=== PATIENT | female | born 1970 | race Caucasian/White ===

== ENCOUNTER 2017-04-04 20:18 | Inpatient (IN) ==
[2017-04-04] MEDS ORDERED: NS 2,000 ML ONE (20:34)
[2017-04-04] MEDS ORDERED: NS 1,000 ML IV ONE ×2 (20:43)
[2017-04-04 20:52] LABS: MANUAL DIFF NEEDED? NO
[2017-04-04 20:55] LABS: BASO% 0.4 % (0.0-0.8); EOS# 0.06 X1000 (0.0-0.7); EOS% 0.8 % (0.0-10.0); HEMATOCRIT 37.2 % (37.0-47.0); HEMOGLOBIN 12.5 g/dL (12.0-16.0); LYMPH# 2.91 X1000 (1.2-3.4); LYMPH% 36.6 % (20.5-51.1); MCH 30.8 PG (27-31); MCHC 33.6 g/dL (33-37); MCV 91.6 FL (81-99); MONO# 0.57 X1000 (0.11-0.59); MONO% 7.2 % (1.7-9.3); MPV 10.7 FL (7.4-10.4); PLT 235 X1000 (130-400); RBC 4.06 XMIL (4.2-5.4)
[2017-04-04 21:11] LABS: MAGNESIUM 2.2 mg/dL (1.5-2.7)
[2017-04-04] MEDS ORDERED: LEVOPHED 8 MG in D5 1/2 NS 250 ML IV SCH (21:15)
[2017-04-04 21:17] LABS: ALBUMIN 3.7 g/dL (3.5-5.0); CALCIUM 10.5 mg/dL (8.8-10.2); POTASSIUM 3.6 mmol/L (3.5-5.1); TOTAL BILIRUBIN 0.24 mg/dL (0.20-1.00); TOTAL PROTEIN 6.4 g/dL (6.3-8.3)
--- NOTE | 2017-04-04 21:21 | Diag Imaging Result Doc PS360 ---
EXAM: CT HEAD W/O CONTRAST HISTORY: ams TECHNIQUE: CT brain without contrast. Dose reduction protocol. COMPARISON: 05/04/2015. FINDINGS: No parenchymal hemorrhage. No epidural or subdural hematoma. No subarachnoid hemorrhage. No mass identified on this noncontrasted exam. No hydrocephalus. No sinus opacification. IMPRESSION: No hemorrhage. Negative brain CT without contrast. Electronically signed by Sarkis Curry 04/04/2017 9:18 PM
[2017-04-04] MEDS ORDERED: SOLU-MEDROL IV ONE (21:23)
--- NOTE | 2017-04-04 21:28 | Diag Imaging Result Doc PS360 ---
EXAM: CHEST-1 VIEW HISTORY: hypotension TECHNIQUE: COMPARISON: 10/06/2016 FINDINGS: The exam is taken in a lordotic projection. Poor inspiratory effort. Heart is not enlarged. Increased interstitial markings more pronounced on the right. No pleural effusions. IMPRESSION: Mild vascular distention. Follow-up PA and lateral recommended.. Electronically signed by Sarkis Curry 04/04/2017 9:25 PM
[2017-04-04] MEDS: LEVOPHED 8 MG in D5 1/2 NS 250 ML IV SCH ×3 (21:31→22:24)
[2017-04-04 22:12] LABS: URINE MICRO REVIEW NEEDED? NO; URINE SOURCE CATH
[2017-04-04 22:19] LABS: BILIRUBIN URINE NEGATIVE (NEGATIVE); BLOOD URINE SMALL (NEGATIVE); COLOR ORANGE; GLUCOSE URINE 500 mg/dL (NEGATIVE); LEUKOCYTES URINE LARGE (NEGATIVE); NITRITE URINE NEGATIVE (NEGATIVE); PH URINE 5.5; PROTEIN URINE 50 mg/dL (NEGATIVE); SP GRAVITY URINE 1.013; TURBIDITY URINE TURBID (CLEAR); UR EPITHELIAL CELLS <10 /HPF (<10); URINE BACTERIA 4+ /HPF; URINE CULTURE NEEDED? YES; URINE RBC <10 /HPF (<10); URINE WBC TNTC /HPF (<10); UROBILINOGEN URINE NORMAL (NORMAL)
[2017-04-04 22:36] LABS: UR AMPHETAMINES QUAL NONE DETECTED (NONE DETECT); UR BARBITUATES QUAL NONE DETECTED (NONE DETECT); UR BENZODIAZEPIN QUAL PRESUMPTIVE POSITIVE (NONE DETECT); UR CANNABINOIDS QUAL NONE DETECTED (NONE DETECT); UR COCAINE QUAL NONE DETECTED (NONE DETECT); UR METHADONE QUAL NONE DETECTED (NONE DETECT); UR OPIATES QUAL NONE DETECTED (NONE DETECT); UR OXYCODONE QUAL PRESUMPTIVE POSITIVE (NONE DETECT); UR PCP QUAL NONE DETECTED (NONE DETECT)
[2017-04-04] MEDS ORDERED: ROCEPHIN 1 GM/NS 1 GM/50 ML IVPB IV ONE (23:14)
[2017-04-04] MEDS ORDERED: NARCAN IV ONE ×2 (23:27→23:40)
--- NOTE | 2017-04-04 23:27 | PROVIDER DOCUMENTATION ---
This chart was entered by Мария Webber Scribe, acting as scribe for Idris Villa MD. HPI-General Adult - General Chief Complaint: High Blood Sugar Stated Complaint: HIGH BLOOD SUGAR Time Seen by Provider: 04/04/17 20:42 Source: patient, family Allergies/Adverse Reactions: Patient Allergies Allergy/AdvReac Type Severity Reaction Status Date / Time ondansetron HCl * AdvReac HEADACHE Verified 04/04/17 21:37 [From Zofran] Home Medications: Home Medication List Medication Instructions Recorded Confirmed Last Taken Type Promethazine [Phenergan] 25 mg PO Q6H PRN PRN #25 tablet 12/03/12 10/06/1610/05 Rx Alprazolam [Xanax] 1 mg PO TID 12/22/13 10/06/16 10/05/16 History Fluoxetine [Prozac] 20 mg PO DAILY 12/22/13 10/06/16 10/05/16 History Insulin Regular, Human [Novolin R] 10 units SQ BID 12/22/13 10/06/16 10/05/16 History PRAVAstatin [Pravachol] 40 mg PO HS 12/22/13 10/06/16 10/05/16 History Amphet Asp/Amphet/D-Amphet 30 mg PO BID 05/13/15 10/06/16 10/05/16 History [Adderall 10 mg Tablet] Gabapentin E.r. [Gralise] 600 mg PO TID 05/13/15 10/06/16 10/05/16 History Morphine Sulfate [Morphine Sulfate 30 mg PO HS 05/13/15 10/06/16 10/05/16 History ER] Oxycodone HCl/Acetaminophen 1 each PO 4XDAY 05/13/15 10/06/16 10/05/16 History [Percocet 10-325 mg Tablet] Levothyroxine [Synthroid] 75 microgm PO DAILY 03/17/16 10/06/16 10/05/16 History Sulfamethoxazole/Trimethoprim 1 each PO BID #14 tablet 10/04/16 10/06/16 Rx [Bactrim Ds Tablet] Baclofen 10 mg PO HS 10/06/16 10/06/16 10/05/16 History Canagliflozin [Invokana] 300 mg PO DAILY 10/06/16 10/06/16 10/05/16 History Fluconazole 150 mg PO DAILY 10/06/16 10/06/16 10/05/16 History Furosemide 40 mg PO DAILY 10/06/16 10/06/16 10/05/16 History Interferon Beta-1B [Betaseron] 1 mg SQ EVERY OTHER DAY 10/06/16 10/06/16 History Losartan Potassium 50 mg PO DAILY 10/06/16 10/06/16 10/05/16 History Morphine Sulfate [Laura] 60 mg PO BID 10/06/16 10/06/16 10/05/16 History Potassium Chloride [Klor-Con 10] 10 meq PO DAILY 10/06/16 10/06/16 10/05/16 History Ranitidine [Zantac] 150 mg PO BID 10/06/16 10/06/16 10/05/16 History Ropinirole HCl 0.25 mg PO HS 10/06/16 10/06/16 10/05/16 History Sitagliptin Phosphate [Januvia] 100 mg PO DAILY 10/06/16 10/06/16 10/05/16 History - History of Present Illness -Gen Adult Nature of Presenting Problems: 46 Y/O F presents to ER with family with the complain of with High Blood sugar [employer] SUPER[employer]. pt family states that pt is having high BP X3 days. pt family states that pt was feeling groggy and weak with dizziness whenever tried to do something at home. Location of Pain/Injury: reports: generalized Pain Radiation: reports: no radiation Severity: reports: severe Onset/Duration: reports: just prior to arrival Timing: reports: still present Associated Symptoms: reports: weakness, other (high Blood sugar) Similar Symptoms Previously?: Yes Recently seen or treated by another doctor?: Yes Review of Systems - Adult - REVIEW OF SYSTEMS - ADULT Constitutional: reports: other (generalized weakness) Eyes: reports: no symptoms reported Ears, Nose, Mouth & Throat: reports: no symptoms reported Cardiovascular: reports: no symptoms reported Respiratory: reports: no symptoms reported Gastrointestinal: reports: no symptoms reported Genitourinary: reports: no symptoms reported Musculoskeletal: reports: no symptoms reported Integumentary: reports: no symptoms reported Neurological: reports: no symptoms reported Psychiatric: reports: no symptoms reported Endocrine: reports: see HPI, excessive sweating (high blood sugar), other Hematologic/Lymphatic: reports: no symptoms reported Allergic/Immunologic: reports: no symptoms reported All Other Systems: Reviewed and Negative Past History - Adult - PAST MEDICAL HISTORY-ADULT Review of Records: reports: Old Records Reviewed, Nursing Assessment Review Cardiovascular: reports: HTN, hyperlipidemia Psychiatric: reports: bipolar, depression Endocrine/Immune: reports: Diabetes - PRIOR SURGERIES/PROCEDURES Surgical/Procedure History: reports: cholecystectomy, hysterectomy, BTL, orthopedic (extremity) - IMMUNIZATION STATUS Childhood Immunizations: See Nurse Assessment Flu Vaccine: See Nurse Assessment - SOCIAL HISTORY Smoking: chew Provider spent 3-5 mins advising pt. on dangers of tobacco.: Discussed manners to quit use, and f/u contacts for add'l counseling. Physical Exam-General - PHYSICAL EXAM-ADULT Initial Vital Signs Reviewed: Yes - CONSTITUTIONAL General Appearance: moderate distress, lethargic, slow to respond - EYES Eyes: PERRL/EOMI, other (eyes deviated Lu) - HEAD, EARS, NOSE, MOUTH & THROAT HENMT: moist mucous membranes, normal ENT inspection, TMs normal - NECK Neck: non-tender, full range of motion, supple - RESPIRATORY Respiratory: chest non-tender, lungs clear, normal breath sounds - CARDIOVASCULAR Cardiovascular: normal peripheral pulses, regular rate, rhythm, no edema - GASTROINTESTINAL (ABDOMEN) Abdominal Exam: normal bowel sounds, non tender, soft - MUSCULOSKELETAL Back Exam: normal inspection, no CVA tenderness, no vertebral tenderness Extremity: pedal edema (1 in bilat legs). negative: no calf tenderness - SKIN Integumentary: normal color, normal turgor - NEUROLOGIC Neurologic: grossly normal, no motor/sensory deficits - PSYCHIATRIC Psych/Mental Status: normal mood/affect, normal thought content, normal thought process, oriented x 3 Progress - PLAN OF CARE/RESULTS Progress/Plan/Lab Results: Vital Signs - 8 hr 04/04/17 20:28 Pulse Rate 108 H Respiratory Rate 15 Blood Pressure 70/42 O2 Sat by Pulse Oximetry 95 Laboratory Results - last 24 hr 04/04/17 04/04/17 20:32 20:38 WBC 7.94 RBC 4.06 L Hgb 12.5 Hct 37.2 MCV 91.6 MCH 30.8 MCHC 33.6 RDW Std Deviation 12.2 Plt Count 235 MPV 10.7 H Immature Gran % (Auto) 0.0 Neut % (Auto) 55.0 Lymph % (Auto) 36.6 [place] % (Auto) 7.2 Eos % (Auto) 0.8 Baso % (Auto) 0.4 Immature Gran # (Auto) 0.00 Neut # (Auto) 4.37 Lymph # (Auto) 2.91 [place] # (Auto) 0.57 Eos # (Auto) 0.06 Baso # (Auto) 0.03 POC Glucose 206 H Orders Category Date Time Status Finger Stick Blood Sugar (ED) DIRECTED Care 04/04/17 20:31 Active Dietrich Cath Insertion ORDERED Care 04/04/17 20:44 Active CHEST-1 VIEW [RAD] Stat Exams 04/04/17 20:[address] HEAD W/O CONTRAST [CT] Stat Exams 04/04/17 20:46 Ordered ALCOHOL BLOOD Stat Lab 04/04/17 20:32 Received CBC WITH ELECTRONIC DIFF [HEME] Stat Lab 04/04/17 20:32 Completed CMP [COMPREHENSIVE METABOLIC PANEL] [CHEM] Stat Lab 04/04/17 20:32 Received LACTATE, PLASMA [CHEM] Stat Lab 04/04/17 20:44 Uncollected LIPASE [CHEM] Stat Lab 04/04/17 20:32 Received MAGNESIUM [CHEM] Stat Lab 04/04/17 20:32 Received TROPONIN T Stat Lab 04/04/17 20:32 Received UDS [URINE DRUG SCREEN] Stat Lab 04/04/17 20:[address] W/POSS RFLX CULT [URINALYSIS] Stat Lab 04/04/17 20:31 Uncollected 0.9% Sodium Chloride Inj [Ns] 1,000 ml Med 04/04/17 20:34 Discontinued .ROUTE As Directed 0.9% Sodium Chloride Inj [Ns] 1,000 ml Med 04/04/17 20:43 Active IV 999 mls/hr 0.9% Sodium Chloride Inj [Ns] 1,000 ml Med 04/04/17 20:43 Active IV 999 mls/hr EKG [EKG] Stat Ther 04/04/17 20:43 Ordered Result Diagrams: 04/04/17 20:32 04/04/17 20:32 - REASSESSMENT Reassessment #1 Time Reassessed: 23:21 (pt remains very somnolent but arousable, pt did not respond to either 2000cc fluid bolus or streroids so levophed was started and has been effective) Status: improving - EKG 1 Time of EKG reading by physician:: 20:34 EKG Read and Signed by:: Idris Villa EKG Interpretation (*Must complete 3 of following elements*): Normal Rate: 84 Rhythm: normal Sinus Rhythm Comments: normal ECG - XRAY 1 XRAY: Bilateral XRAY Study: Chest Impression: Abnormal XRAY Interpretation: mild vascular distention by radiologiost - CT/MRI 1 CT Study: Head Impression: Normal CT Results: no hemorrhage,negative brain CT by radiologist Departure - Departure Date of Disposition Decision: 04/04/17 Time of Disposition Decision: 23:22 DIAGNOSIS: Hypotension Qualifiers: Hypotension type: unspecified hypotension type Qualified Code(s): I95.9 - Hypotension, unspecified UTI (urinary tract infection) Qualifiers: Urinary tract infection type: site unspecified Hematuria presence: without hematuria Qualified Code(s): N39.0 - Urinary tract infection, site not specified Disposition: ADMITTED INPATIENT 09 Certified Medical Emergency: Emergent Condition: Fair Referrals and Follow-Ups: Renetta Faustin [Primary Care Provider] - - Critical Care Note This patient required my direct & personal management of CC.: Yes Total Time (mins): 120 Critical Care Statement: This patient required my direct personal management to treat or rule out processes, the absence of which, could potentiallly result in sudden, clinically significant life or limb threatening deterioration. Attestation - Physician/ BALJIT Attestation Patient care was provided by Advanced Practice Provider:: No The physician spent face to face time with patient:: Yes Advanced Practice Provider documentation review:: Supervising physician onsite and consulted in the evaluation and care of this patient. The physician did have a face to face encounter with the patient. This chart was documented by the indicated scribe, (Мария Webber Scribe) and accurately reflects the services I performed and decisions made by me, Idris Villa MD, as attested by the provider's signature.
[2017-04-04] MEDS ORDERED: NARCAN ONE (23:41)
[2017-04-05] MEDS ORDERED: NARCAN IV PRN (03:22)
[2017-04-05] MEDS ORDERED: NICODERM PATCH TD ONE (03:22)
[2017-04-05 03:55] LABS: HEMOGLOBIN A1C 16.1 % (4.8-6.0)
[2017-04-05] MEDS: NS 1,000 ML IV SCH ×3 (04:20→20:28)
--- NOTE | 2017-04-05 04:48 | HISTORY AND PHYSICAL ---
PRIMARY CARE PROVIDERS: 1. Dr. Valadez from [place], pain specialist 2. Allan Thomas MD, neurologist from [place] 3. ANGELA Aquino, primary care provider. CHIEF COMPLAINT: Low blood sugar per the family member. HISTORY OF PRESENT ILLNESS: This is a 46-year-old female who comes in with her daughter at the bedside. Apparently has had complaints over the last couple days about her blood sugar not being correct and running high. She has a past medical history of MS, hypertension, hyperlipidemia, bipolar disorder, diabetes type 2, now insulin dependent, COPD, with continued tobacco use, frequent urinary tract infections and chronic kidney disease. She also takes multiple opioids muscle relaxers and benzodiazepines. The patient is very somnolent, only breathing around 6 times per minute. Narcan 0.5 mg was administered x2 doses in the emergency room, and the patient responded, became a lot more oriented, was able to answer all questions appropriately at that point. She had been hypotensive and started on Levophed. The patient be admitted to the ICU for further evaluation and treatment. PAST MEDICAL HISTORY: See HPI. PREVIOUS SURGICAL HISTORY: 1. Cholecystectomy. 2. Hysterectomy. 3. BTL. 4. Right thumb surgery. SOCIAL HISTORY: Lives with her and daughter. Disabled. Smokes 1-1/2 to 2 packs of cigarettes per day. Smoking cessation has been gone over with the patient in the past and was repeated with the patient after she woke up after the Narcan. She denies wanting to quit at this time. The patient does not take illicit drugs. However, she does take multiple prescribed narcotics, benzodiazepines and muscle relaxers. Again, the patient and family were spoken to on this matter. This is the second time that the patient has arrived to the hospital this year obtunded with an unintentional overdose. Denies alcohol use as well. FAMILY HISTORY: Positive for coronary artery disease, diabetes mellitus, hypertension, hyperlipidemia, and COPD in first-degree relatives. ALLERGIES: Zofran causing a headache. HOME MEDICATIONS: Include fluconazole, Percocet 10, Novolin-R, Neurontin, Prozac, potassium chloride, Januvia, Lasix, OxyContin 30 mg extended release, losartan potassium, ranitidine, pravastatin, Synthroid, cyclobenzaprine, ropinirole, alprazolam. An order for nursing to reconcile home medications in the computer has been place and they will be restarted when appropriate. REVIEW OF SYSTEMS: Fourteen point review of systems conducted with the patient. No complaint at this time. Pertinent positives listed above in the HPI. All other systems reviewed and found to be negative. PHYSICAL EXAMINATION: VITAL SIGNS: Pulse 80, respirations 6 initially, increased to 16 after Narcan administration. Blood pressures were as low as 58/41 and as high as 146/86 after Narcan administration. Oxygen saturation 90% on room air which increased to 99% on room air after Narcan administration. GENERAL: Extremely somnolent 46-year-old female who was responsive to Narcan, is now able to answer all questions appropriately and is alert and oriented x3. Daughter at bedside. In no acute distress. HEENT: Head is atraumatic, normocephalic. The pupils were sluggishly responsive; however, they were equal and around. Sclerae are anicteric. Conjunctivae are pink. Oral mucosa is dry. NECK: Supple. No JVD. No thyromegaly. Trachea is midline. CARDIAC: S1-S2 appreciated. No murmurs, gallops, rubs. LUNGS: Decreased bilaterally. Prolonged expiratory phase. No rhonchi, wheezes or rales. Symmetrical rise and fall of respirations. ABDOMEN: Protuberant soft, nondistended, nontender. Bowel sounds hypoactive in all 4 quadrants. No pulsatile mass. No organomegaly. EXTREMITIES: No clubbing, cyanosis, or edema. One plus pedal pulses bilaterally. NEUROLOGICAL: Somnolent but does arouse. Oriented x3. No focal deficits noted. DIAGNOSTIC DATA: Chest x-ray, shows chronic COPD changes. Poor inspiratory effort. Mildly increased interstitial markings on the right side. CT of the head NAD. LABORATORY DATA: WBC 7.94, hemoglobin 12.5, hematocrit 37.2, platelet count 235 ,000. Sodium 140, potassium 3.6, chloride 100, carbon dioxide 27, BUN 12, creatinine 1.5, glucose 172, AST 41, ALT 50. Urine leukocyte esterase positive, too numerous to count WBCs, 4+ bacteria. Toxicology screen positive for oxycodone and benzodiazepine. ASSESSMENT: 1. Unintentional overdose of chronic opioids, benzodiazepines and muscle relaxants. The need to cut back on these medications was talked to with the patient and the family. We did our best to make the daughter aware of the severity of the situation and the need to go with the patient to Dr. Valadez's appointments and ask for a decrease in pain medications, as she is unintentionally over sedating herself with medication. Narcjuan will be put on her medication list p.r.n. for somnolence, depressed respiratory status or a systolic blood pressure less than 90. All opioids and muscle relaxers will be held at this time. We will continue Xanax for fear of withdrawal with seizure. 2. Urinary tract infection. We will give Rocephin q.24 hours. 3. Acute kidney injury on chronic kidney disease, stage 3. We will give fluid resuscitation aggressively. 4. Fluid volume depletion. See above. 5. Diabetes mellitus type 2 with hyperglycemia. Check hemoglobin A1c. Start on moderate dose sliding scale insulin. Hold Invokana and Januvia. 6. Hypotension. Patient was originally on Levophed. We will wean this as possible. 7. Hyperlipidemia. Continue statin. 8. Multiple sclerosis. Aware. 9. Further recommendations per patient's clinical course. Dictated by ANGELA Day for Victor Manuel Yu MD Seen and examined pt; discussed case with [employer] DES[employer]. cc: ANGELA Day MD Mark Murphy, MD Christopher C. Laganke, MD Kim Harbin, CRNP MTDD
--- NOTE | 2017-04-05 05:25 | EKG Report ---
Test Performed on : 04/04/2017 8:34:29 PM Test Reason : WEAKNESS Blood Pressure : / mmHG Vent. Rate : 084 BPM Atrial Rate : 084 BPM P-R Int : 144 ms QRS Dur : 076 ms QT Int : 388 ms P-R-T Axes : 062 067 053 degrees QTc Int : 458 ms Normal sinus rhythm. Normal ECG When compared with ECG of 27-SEP-2011 14:22, No significant change was found Unconfirmed Result
[2017-04-05] MEDS: LEVOPHED 8 MG in D5 1/2 NS 250 ML IV SCH (06:46)
--- NOTE | 2017-04-05 07:13 | EKG Report ---
Test Performed on : 04/05/2017 06:17:58 AM Test Reason : chest pain Blood Pressure : / mmHG Vent. Rate : 084 BPM Atrial Rate : 084 BPM P-R Int : 142 ms QRS Dur : 076 ms QT Int : 388 ms P-R-T Axes : 068 061 058 degrees QTc Int : 458 ms Normal sinus rhythm. Normal ECG When compared with ECG of 04-APR-2017 20:34, No significant change was found Unconfirmed Result
[2017-04-05 07:33] LABS: BASO% 0.1 % (0.0-0.8); HEMATOCRIT 40.2 % (37.0-47.0); HEMOGLOBIN 13.8 g/dL (12.0-16.0); LYMPH# 0.74 X1000 (1.2-3.4); LYMPH% 8.1 % (20.5-51.1); MANUAL DIFF NEEDED? YES; MCH 31.2 PG (27-31); MCHC 34.3 g/dL (33-37); MONO% 1.1 % (1.7-9.3); MPV 10.9 FL (7.4-10.4); NEUT% 90.7 % (42.2-75.2); PLT 250 X1000 (130-400); RBC 4.42 XMIL (4.2-5.4)
[2017-04-05 07:54] LABS: BANDS 2 % (0-1); EOS 2 % (1-10); LYMPHS 6 % (21-51); MONO 2 % (1-9)
[2017-04-05 08:21] LABS: CALCIUM 9.6 mg/dL (8.8-10.2); POTASSIUM 4.5 mmol/L (3.5-5.1)
[2017-04-05] MEDS: COZAAR PO SCH (08:26)
[2017-04-05] MEDS: SYNTHROID PO SCH (08:45)
[2017-04-05] MEDS: HUMALOG SUBQ SCH ×2 (08:45→11:23)
[2017-04-05] MEDS: HEPARIN SUBQ SCH ×2 (08:45→20:27)
[2017-04-05] MEDS: KLOR-CON PO SCH (08:46)
[2017-04-05] MEDS ORDERED: ZANTAC PO SCH (09:00)
[2017-04-05] MEDS: XANAX PO SCH ×3 (09:16→20:29)
[2017-04-05] MEDS: PEPCID PO SCH ×2 (11:24→20:29)
[2017-04-05] MEDS: HUMALOG DOSE (PARKWAY) SUBQ SCH ×3 (13:23→20:27)
[2017-04-05] MEDS ORDERED: PRAVACHOL PO SCH (21:00)
[2017-04-05] MEDS ORDERED: REQUIP PO SCH (21:00)
[2017-04-05] MEDS ORDERED: ROCEPHIN 1 GM/NS 1 GM/50 ML IVPB IV SCH (22:00)
[2017-04-05] MEDS ORDERED: ROCEPHIN 1 GM in NS 50 ML IV SCH (22:00)
[2017-04-06] MEDS: NS 1,000 ML IV SCH (04:07)
[2017-04-06] MEDS: XANAX PO SCH (04:07)
[2017-04-06] MEDS: SYNTHROID PO SCH (06:17)
[2017-04-06] MEDS: HUMALOG DOSE (PARKWAY) SUBQ SCH (06:17)
[2017-04-06] MEDS: HEPARIN SUBQ SCH (08:25)
[2017-04-06] MEDS: COZAAR PO SCH (08:26)
[2017-04-06] MEDS: KLOR-CON PO SCH (08:26)
[2017-04-06] MEDS: PEPCID PO SCH (08:26)
[2017-04-06] MEDS ORDERED: NICODERM PATCH TD SCH (09:00)
[2017-04-06 09:56] VITALS: BP 123/77
--- NOTE | 2017-04-06 14:52 | DISCHARGE SUMMARY ---
ADMISSION DATE: 04/05/2017 DISCHARGE DATE: 04/06/2017 PRIMARY CARE PROVIDER: ANGELA Aquino NEUROLOGIST: Dr. Allan Thomas PAIN SPECIALIST: Dr. Valadez. DIAGNOSES: 1. Unintentional overdose on chronic opioids. 2. Urinary tract infection with gram-negative rods. So far, culture has gram-negative rods. We will continue to follow. 3. Acute kidney injury on chronic kidney disease stage 3. She is back to baseline. 4. Fluid volume depletion, resolved. 5. Diabetes type 2, with hyperglycemia. Her hemoglobin A1c is 16.1. 6. Hypotension, resolved. 7. Hyperlipidemia, on statins. 8. Multiple sclerosis. DIAGNOSTICS: 1. On 04/04/2017, CT of the head revealed no hemorrhage. Negative brain CT without contrast. 2. On 04/04/2017, chest x-ray revealed mild vascular distention. Poor inspiratory effort. Heart is not enlarged. No pleural effusions. HOSPITAL COURSE: Ms. Walters presented to the emergency room, with family members stating that over the last couple of days the patient's blood sugar has been running high. She was lethargic, diaphoretic and hypotensive, with a blood pressure of 66/40. It did decrease to 58/41. She was started on Levophed. She was breathing about 6 times a minute. She was given Narcan twice, and she did respond. Able to ask questions. She was then moved to ICU for further evaluation and treatment. After blood pressures did increase, and she has been in the, looks like, 101 to 135 systolic range today. Her O2 have been 98% to 99% on room air. The patient is on chronic opioids, benzodiazepines, as well as muscle relaxers. We did hold all of these during the admission, only giving a low-dose Xanax to assure that the patient did not go through withdrawal and have seizures. She was placed on pattern blood glucose with sliding-scale insulin. Blood sugars did range in 200 to 400 range on admission. It was 250 this morning. Urine culture has returned with gram-negative rods. She did receive Rocephin IV while in the hospital, and she will be discharged on Bactrim DS x5 days. PHYSICAL EXAMINATION: General: This is a 46-year-old female who is sitting up in the bed, eating breakfast, in no distress. She is awake, alert and oriented. Cardiovascular: Regular rate and rhythm. S1 and S2 appreciated. Pulmonary: Breath sounds are clear, with no increased work of breathing noted. Gastrointestinal: Abdomen is soft, nontender, nondistended. Bowel sounds in all 4 quadrants. Extremities: No clubbing or cyanosis. She does have some pedal edema, which she states is normal for her. Calves are nontender. Pulses are palpable x4. Neurologic: She is alert and oriented x3. Cranial nerves 2 through 12 grossly intact. Genitourinary: Dietrich is patent with clear, pale urine draining. DISCHARGE MEDICATIONS: 1. Bactrim DS, 1 p.o. b.i.d. x5 days. 2. Januvia 100 mg daily. 3. Ropinirole 0.5 at bedtime. 4. Zantac 150 b.i.d. 5. Klor-Con 10 daily. 6. Pravastatin 40 at bedtime. 7. OxyContin 30 b.i.d. 8. Percocet 10/325, one 4 times a day. 9. Losartan 50 mg daily. 10. Synthroid 75 mcg daily. 11. Novolin R 10 units b.i.d. 12. Gralise 600 mg t.i.d. 13. Furosemide 40 mg daily. 14. Prozac 40 mg daily. 15. Cyclobenzaprine 10 mg t.i.d. 16. Abilify 5 mg daily. 17. Adderall 10 mg pills, she takes 30 mg b.i.d. 18. Xanax 1 mg t.i.d. The patient, as well as family members, have been made aware of the severity of the situation, taking chronic opioids, benzodiazepines and muscle relaxants, especially at the doses she has. This was an unintentional overdose. They have been encouraged to call Dr. Valadez today to discuss her medications, so that doses may be decreased for the patient's safety. They do voice understanding. FOLLOWUP: 1. Dr. Valadez, call today to be seen tomorrow or the next day. 2. Renetta Faustin in 1 week to 10 days, to follow up for UTI. DISPOSITION: She is being discharged home, in stable condition, with family members. TIME SPENT: This is a greater than 30-minute discharge. Dictated by ANGELA Parikh for Sandro Manley MD cc: ANGELA Parikh MD
--- NOTE | 2017-04-08 12:44 | PROGRESS NOTE ---
DATE: 04/08/2017 SUBJECTIVE: The patient was discharged from the hospital on 04/06/2017. She was originally sent home on Bactrim DS for a urinary tract infection. Sensitivities have returned, and she has grown E. coli which is resistant to Bactrim. Therefore, we are calling in Levaquin 500 mg daily for 7 days. I did call and speak to the patient regarding this. She stated "then it is a good thing I did not go get the other filled." When I asked why, she stated that she did not think it was important. I did discuss with her the importance of taking medications as prescribed as this urinary tract infection could get worse. She did voice understanding and stated she will go pick the Levaquin up today. I did instruct her that if she had a fever, chills, difficulty urinating or any kind problems or any questions or concerns, she needs to call her physician. Dictated by ANGELA Parikh for Sandro Manley MD cc: ANGELA Parikh MD
== END 2017-04-06 12:46 | disposition home or self-care (01) ==
LOC: ED 20:18 → EDIPHOLD 04-05 02:06 → SUATTDRO 04-05 02:06 → P.ICU 04-05 12:48
PROVIDERS: ATTEND Family Medicine

== ENCOUNTER 2019-06-22 13:59 | Observation (INO) ==
[2019-06-22 14:45] LABS: CLARITY CLEAR (CLEAR); COLOR YELLOW
[2019-06-22 14:46] LABS: BILIRUBIN URINE NEGATIVE (NEGATIVE); BLOOD URINE NEGATIVE (NEGATIVE); KETONE URINE 3+(Large) mg/dL (NEGATIVE); LEUKOCYTES URINE NEGATIVE (NEGATIVE); NITRITE URINE NEGATIVE (NEGATIVE); PH URINE 6.5; UROBILINOGEN URINE NORMAL
[2019-06-22 14:47] LABS: URINE BACTERIA 1+ /HFP; URINE EPITHELIAL CELLS >10 /HPF (<10); URINE RBC <10 /HPF (<10)
[2019-06-22 14:48] LABS: URINE SOURCE CLEAN CATCH; URINE YEAST PRESENT /HPF
--- NOTE | 2019-06-22 16:25 | Diag Imaging Result Doc PS360 ---
EXAM: CHEST-1 VIEW HISTORY: R/O SEPSIS TECHNIQUE: Single view COMPARISON: 04/04/2017 FINDINGS: The lungs are well expanded. The heart is not enlarged. The vessels are not distended. There are no infiltrates. No effusion identified. IMPRESSION: No pneumonia Electronically signed by Sarkis Curry 06/22/2019 4:23 PM
[2019-06-22 16:30] LABS: BASO# 0.04 X1000 (0.0-0.2); BASO% 0.5 % (0.0-0.8); EOS# 0.05 X1000 (0.0-0.7); EOS% 0.6 % (0.0-10.0); HEMATOCRIT 51.7 % (37.0-47.0); HEMOGLOBIN 17.9 g/dL (12.0-16.0); IMM GRAN# 0.02 X1000 (0.0-0.04); IMM GRAN% 0.2 % (0.0-0.5); LYMPH% 31.9 % (20.5-51.1); MCH 31.2 PG (27-31); MCHC 34.6 g/dL (33-37); MCV 90.2 FL (81-99); MONO# 0.73 X1000 (0.11-0.59); MONO% 8.3 % (1.7-9.3); NEUT# 5.14 X1000 (1.4-6.5); NEUT% 58.5 % (42.2-75.2); PLT 251 X1000 (130-400); RBC 5.73 XMIL (4.2-5.4); RDW 12.9 % (11.5-14.5); WBC 8.78 X1000 (4.8-10.8)
[2019-06-22 16:44] LABS: INR 0.91; PROTIME 12.7 Seconds (11.0-16.0); PTT 31.9 Seconds (22.3-41.8)
[2019-06-22 17:01] LABS: AGAP 17; ALKALINE PHOSPHATASE 119 U/L (32-104); BUN 12 mg/dL (8-22); CALCIUM 11.8 mg/dL (8.8-10.2); CHLORIDE 99 mmol/L (98-107); CK PROFILE 28 U/L (24-173); COSMO 280; CREATININE 0.8 mg/dL (0.5-0.9); ESTIMATED GFR > 60; GLUCOSE 244 mg/dL (70-104); GOT 24 U/L (10-30); GPT 17 U/L (10-36); POTASSIUM 3.9 mmol/L (3.5-5.1); SODIUM 136 mmol/L (136-145); TCO2 20 mmol/L (25-35); TOTAL PROTEIN 7.4 g/dL (6.3-8.3)
[2019-06-22] MEDS ORDERED: MORPHINE IV ONE (17:05)
[2019-06-22] MEDS ORDERED: ZOFRAN IV ONE (17:05)
--- NOTE | 2019-06-22 18:28 | Diag Imaging Result Doc PS360 ---
EXAM: CT ABDOMEN/PELVIS W/O CONTRAST HISTORY: back pain, recent uti TECHNIQUE: CT abdomen and pelvis without contrast COMPARISON: None. FINDINGS: The gallbladder has been removed. No focal hepatic normality identified on this noncontrasted exam. Normal spleen. No inflammation about the pancreas. Normal adrenal glands. No renal stones. No hydronephrosis. Moderate atherosclerosis. No aortic aneurysm. Normal appendix. No abscess. There is stool throughout the colon. No bowel obstruction. The urinary bladder is only mildly distended. The uterus has been removed. No pelvic mass. IMPRESSION: 1.Constipation 2.Cholecystectomy 3.Hysterectomy This exam was performed using automated exposure control, adjustment of mA or kV according to patient size, and/or use of iterative reconstruction technique. Electronically signed by Sarkis Curry 06/22/2019 6:26 PM
[2019-06-22] MEDS ORDERED: MORPHINE IV PRN (18:37)
[2019-06-22] MEDS ORDERED: NS 1,000 ML IV ONE (18:37)
[2019-06-22] MEDS ORDERED: ZOFRAN IV PRN (18:37)
--- NOTE | 2019-06-22 18:37 | PROVIDER DOCUMENTATION ---
This chart was entered by Yelena Fish Scribe, acting as scribe for Mana Jain MD. HPI-Female /OB/Breast - General Chief Complaint: Back Pain Stated Complaint: LOWER BACK PAIN Time Seen by Provider: 06/22/19 15:54 Source: reports: patient Allergies/Adverse Reactions: Patient Allergies Allergy/AdvReac Type Severity Reaction Status Date / Time sulfamethoxazole Allergy Mild severe Verified 06/06/19 10:38 [From Bactrim] abdominal pain and vomiting trimethoprim [From Bactrim] Allergy Mild severe Verified 06/06/19 10:38 abdominal pain and vomiting ondansetron HCl * AdvReac HEADACHE Verified 06/06/19 10:37 [From Zofran] Home Medications: Home Medication List Medication Instructions Recorded Confirmed Last Taken Type Insulin Regular, Human [Novolin R] 10 units SQ BID 12/22/13 06/22/19 10/05/16 History PRAVAstatin [Pravachol] 40 mg PO HS 12/22/13 06/22/19 10/05/16 History Amphet Asp/Amphet/D-Amphet 30 mg PO BID 05/13/15 06/22/19 10/05/16 History [Adderall 10 mg Tablet] Gabapentin E.r. [Gralise] 600 mg PO TID 05/13/15 06/22/19 04/04/17 History Oxycodone HCl/Acetaminophen 1 each PO 4XDAY 05/13/15 06/22/19 04/04/17 History [Percocet 10-325 mg Tablet] Levothyroxine [Synthroid] 75 microgm PO DAILY 03/17/16 06/22/19 10/05/16 History Losartan Potassium 50 mg PO DAILY 10/06/16 06/22/19 10/05/16 History Aripiprazole [Abilify] 5 mg PO QAM 04/05/17 06/22/19 Unknown History Cyclobenzaprine HCl 10 mg PO TID 04/05/17 06/22/19 04/04/17 History escitalopram 10 mg tablet 10 mg PO QDAY 06/06/19 06/22/19 Unknown History pioglitazone 30 mg tablet 30 mg PO QDAY 06/06/19 06/22/19 Unknown History rotigotine 2 mg/24 hour 1 patch TRANSDERMAL QDAY 06/06/19 06/22/19 Unknown History transdermal 24 hour patch Nitrofurantoin Monohyd/M-Cryst 100 mg PO BID #14 cap 06/18/19 06/22/19 Unknown Rx [Macrobid 100 mg Capsule] - History of Present Illness-Female /OB Nature of Presenting Problem: 49yof presents to ED cc low back pain, nausea, vomiting and dysuria since Tuesday that is getting worse. Pt reports she was seen in ED Tuesday, dx with UTI, given a Rocephin shot and Macrobid for home but it hasn't helped. Pt denies Fever, diarrhea. Pt has hx of MS, DM and HTN. Does patient report she is ?: No Location of complaint: reports: urethral Radiation: reports: back Quality of Pain: reports: aching, cramping, sharp Severity in ED: reports: moderate Onset/Duration: reports: 4 days ago Timing: reports: still present Context/Activities at Onset: reports: light activity Vaginal Symptoms: reports: no symptoms Vaginal Bleeding Amount: None Urinary Symptoms: reports: dysuria, low back pain Related Symptoms: reports: no symptoms Similar Symptoms Previously?: Yes Recently seen or treated by another doctor?: Yes (seen in ED on Tuesday) Review of Systems - Adult - REVIEW OF SYSTEMS - ADULT Constitutional: reports: see HPI. denies: chills, fever, fatique Eyes: reports: no symptoms reported Ears, Nose, Mouth & Throat: reports: no symptoms reported Cardiovascular: reports: no symptoms reported Respiratory: reports: no symptoms reported Gastrointestinal: reports: see HPI, abdominal pain, nausea, vomiting. denies: diarrhea Genitourinary: reports: see HPI, dysuria Musculoskeletal: reports: see HPI, back pain Integumentary: reports: no symptoms reported Neurological: reports: no symptoms reported Psychiatric: reports: no symptoms reported Endocrine: reports: no symptoms reported Hematologic/Lymphatic: reports: no symptoms reported Allergic/Immunologic: reports: no symptoms reported All Other Systems: Reviewed and Negative Past History - Adult - PAST MEDICAL HISTORY-ADULT Review of Records: reports: Nursing Assessment Review, Medications Reviewed, Social history reviewed & non-contributory. Major Childhood Illnesses: reports: denies history Cardiovascular: reports: HTN, hyperlipidemia Respiratory: reports: denies history Gastrointestinal: reports: denies history Obstetrical/Gynecological: reports: denies history Genitourinary: reports: denies history Musculoskeletal: reports: denies history Neurological: reports: denies history Psychiatric: reports: bipolar, depression Endocrine/Immune: reports: Diabetes Other Conditions: reports: denies history - PRIOR SURGERIES/PROCEDURES Surgical/Procedure History: reports: cholecystectomy, hysterectomy, BTL, orthopedic (extremity) - IMMUNIZATION STATUS Childhood Immunizations: See Nurse Assessment Flu Vaccine: See Nurse Assessment - FAMILY HISTORY Family History: reviewed, not pertinent - SOCIAL HISTORY Smoking: cigarettes, greater than 1 pack/day Provider spent 3-5 mins advising pt. on dangers of tobacco.: Discussed manners to quit use, and f/u contacts for add'l counseling. Physical Exam-General - PHYSICAL EXAM-ADULT Initial Vital Signs Reviewed: Yes - CONSTITUTIONAL General Appearance: alert. negative: anxious, combative - EYES Eyes: PERRL/EOMI, pink conjunctivae. negative: photophobia - HEAD, EARS, NOSE, MOUTH & THROAT HENMT: normocephalic/atraumatic, moist mucous membranes. negative: angioedema - RESPIRATORY Respiratory: chest non-tender, lungs clear, normal breath sounds. negative: rales - CARDIOVASCULAR Cardiovascular: normal peripheral pulses, no edema, tachycardia. negative: regular rate, rhythm, bradycardia - GASTROINTESTINAL (ABDOMEN) Abdominal Exam: normal bowel sounds, soft, tenderness. negative: rebound - MUSCULOSKELETAL Back Exam: normal inspection, no CVA tenderness, no vertebral tenderness, other (tender SI joints) Extremity: normal inspection. negative: deformity - SKIN Integumentary: normal color. negative: diaphoresis, jaundice - PSYCHIATRIC Psych/Mental Status: normal mood/affect, oriented x 3. negative: anxious, disheveled Progress - PLAN OF CARE/RESULTS Progress/Plan/Lab Results: Vital Signs - 8 hr 06/22/19 14:08 06/22/19 15:59 06/22/19 16:06 Temperature 97.7 F 98.1 F Pulse Rate 121 H 113 H Respiratory Rate 20 21 Blood Pressure 158/101 142/107 O2 Sat by Pulse Oximetry 97 06/22/19 17:32 Temperature 98.1 F Pulse Rate 110 H Respiratory Rate 16 Blood Pressure 168/114 O2 Sat by Pulse Oximetry 99 Laboratory Results - last 24 hr 06/22/19 06/22/19 06/22/19 14:20 14:25 16:11 WBC 8.78 RBC 5.73 H Hgb 17.9 H Hct 51.7 H MCV 90.2 MCH 31.2 H MCHC 34.6 RDW Std Deviation 12.9 Plt Count 251 MPV 11.0 H Immature Gran % (Auto) 0.2 Neut % (Auto) 58.5 Lymph % (Auto) 31.9 [place] % (Auto) 8.3 Eos % (Auto) 0.6 Baso % (Auto) 0.5 Immature Gran # (Auto) 0.02 Neut # (Auto) 5.14 Lymph # (Auto) 2.80 [place] # (Auto) 0.73 H Eos # (Auto) 0.05 Baso # (Auto) 0.04 PT INR PTT (Actin FS) Sodium Potassium Chloride Carbon Dioxide Anion Gap BUN Creatinine Estimated GFR/1.73 m2 BUN/Creatinine Ratio Glucose POC Glucose 217 H Calculated Osmolality Calcium Total Bilirubin AST ALT Alkaline Phosphatase Creatine Kinase Troponin T Total Protein Albumin Globulin Albumin/Globulin Ratio Plasma Lactate Urine Source CLEAN CATCH Urine Color YELLOW Urine Clarity CLEAR Urine pH 6.5 Ur Specific [place] 1.020 Urine Protein 3+(500 mg/dL) A Urine Ketones 3+(Large) A Urine Blood NEGATIVE Urine Nitrite NEGATIVE Urine Bilirubin NEGATIVE Urine Urobilinogen NORMAL Urine Microscopic RBC <10 Urine WBC NEGATIVE Urine Microscopic WBC 10-20 A Ur Epithelial Cells >10 A Urine Bacteria 1+ Urine Yeast PRESENT Urine Glucose 2+(250 mg/dL) A 06/22/19 06/22/19 06/22/19 16:11 16:11 16:11 WBC RBC Hgb Hct MCV MCH MCHC RDW Std Deviation Plt Count MPV Immature Gran % (Auto) Neut % (Auto) Lymph % (Auto) [place] % (Auto) Eos % (Auto) Baso % (Auto) Immature Gran # (Auto) Neut # (Auto) Lymph # (Auto) [place] # (Auto) Eos # (Auto) Baso # (Auto) PT 12.7 INR 0.91 PTT (Actin FS) 31.9 Sodium 136 Potassium 3.9 Chloride 99 Carbon Dioxide 20 L Anion Gap 17 BUN 12 Creatinine 0.8 Estimated GFR/1.73 m2 > 60 BUN/Creatinine Ratio 15 Glucose 244 H POC Glucose Calculated Osmolality 280 Calcium 11.8 H Total Bilirubin 0.50 AST 24 ALT 17 Alkaline Phosphatase 119 H Creatine Kinase 28 Troponin T Total Protein 7.4 Albumin 4.0 Globulin 3.0 Albumin/Globulin Ratio 1.0 Plasma Lactate 1.6 Urine Source Urine Color Urine Clarity Urine pH Ur Specific [place] Urine Protein Urine Ketones Urine Blood Urine Nitrite Urine Bilirubin Urine Urobilinogen Urine Microscopic RBC Urine WBC Urine Microscopic WBC Ur Epithelial Cells Urine Bacteria Urine Yeast Urine Glucose 06/22/19 16:11 WBC RBC Hgb Hct MCV MCH MCHC RDW Std Deviation Plt Count MPV Immature Gran % (Auto) Neut % (Auto) Lymph % (Auto) [place] % (Auto) Eos % (Auto) Baso % (Auto) Immature Gran # (Auto) Neut # (Auto) Lymph # (Auto) [place] # (Auto) Eos # (Auto) Baso # (Auto) PT INR PTT (Actin FS) Sodium Potassium Chloride Carbon Dioxide Anion Gap BUN Creatinine Estimated GFR/1.73 m2 BUN/Creatinine Ratio Glucose POC Glucose Calculated Osmolality Calcium Total Bilirubin AST ALT Alkaline Phosphatase Creatine Kinase Troponin T < 0.010 Total Protein Albumin Globulin Albumin/Globulin Ratio Plasma Lactate Urine Source Urine Color Urine Clarity Urine pH Ur Specific [place] Urine Protein Urine Ketones Urine Blood Urine Nitrite Urine Bilirubin Urine Urobilinogen Urine Microscopic RBC Urine WBC Urine Microscopic WBC Ur Epithelial Cells Urine Bacteria Urine Yeast Urine Glucose Orders Category Date Time Status Cardiac Monitoring DIRECTED Care 06/22/19 15:54 Active IV Insertion ORDERED Care 06/22/19 15:54 Completed Notify MD of + Sepsis Screen NOW Care 06/22/19 15:54 Active Notify Physician As Ordered Care 06/22/19 15:54 Active CHEST-1 VIEW [RAD] Stat Exams 06/22/19 15:[address] ABDOMEN/PELVIS W/O CONTRAST [CT] Stat Exams 06/22/19 17:45 Completed BLOOD CULTURE [BLDCUL] Stat Lab 06/22/19 16:13 Ordered CBC WITH DIFF [HEME] Stat Lab 06/22/19 16:11 Completed CK PROFILE [SP CHEM] Stat Lab 06/22/19 16:11 Completed COMPREHENSIVE METABOLIC PANEL [CHEM] Stat Lab 06/22/19 16:11 Completed LACTATE, PLASMA [CHEM] Lab 06/22/19 16:11 Completed LACTATE, PLASMA [CHEM] Lab 06/22/19 19:00 Uncollected LACTATE, PLASMA [CHEM] Lab 06/22/19 22:00 Uncollected PROTIME WITH INR [COAG] Stat Lab 06/22/19 16:11 Completed PTT [COAG] Stat Lab 06/22/19 16:11 Completed TROPONIN T Stat Lab 06/22/19 16:11 Completed URINE CULTURE [RM] Routine Lab 06/22/19 14:48 Ordered ua [URINALYSIS PL W/POSS RFLX CULT] [URINALYSIS] Stat Lab 06/22/19 14:20 Completed Morphine Med 06/22/19 17:05 Discontinued 2 mg IV NOW ONE Ondansetron [Zofran] Med 06/22/19 17:05 Discontinued 4 mg IV NOW ONE Oxygen Device Stat Oth 06/22/19 15:54 Active Result Diagrams: 06/22/19 16:11 06/22/19 16:11 - EKG 1 Time of EKG reading by physician:: 16:09 EKG Read and Signed by:: Mana Jain EKG Interpretation (*Must complete 3 of following elements*): Abnormal (borderline; possible left atrial enlargement) Rate: 108 Rhythm: sinus tachycardia QRS: normal VA Interval: normal - XRAY 1 XRAY: Bilateral XRAY Study: Chest Impression: See EMR Report (IMPRESSION: No pneumonia Electronically si gned by Sarkis Curry 06/22/2019 4:23 PM) - CONSULTS/PCP/HOSPITALIST Notification #1 *Consult/PCP/Hospitalist*: Dr MANLEY Time Discussed: 18:37 Consult Disposition: Admit Departure - Departure Date of Disposition Decision: 06/22/19 Time of Disposition Decision: 18:36 DIAGNOSIS: Pyelonephritis Disposition: ADMITTED INPATIENT 09 Certified Medical Emergency: Emergent Condition: Good Additional Instructions: ED Follow Up Instructions: You have been treated by a care provider in the Emergency Department. These instructions are being provided to you so you can have an understanding of how to care for yourself upon discharge. Upon discharge from the Emergency Department, you are responsible for making arrangements for follow-up care by a physician of your choice. Take all prescribed medications as directed. Return to the Emergency Department immediately for any new or worsening symptoms. You may call the Physician Referral phone number at [phone] to obtain a list of Physicians who are taking new patients. Referrals and Follow-Ups: Sandro Manley MD [Primary Care Provider] - Discharge Education: Steps to Quit Smoking, Csss-on-Fydu - Critical Care Note This patient required my direct & personal management of CC.: No Attestation - Physician/ BALJIT Attestation Patient care was provided by Advanced Practice Provider:: No The physician spent face to face time with patient:: Yes Advanced Practice Provider documentation review:: Supervising physician onsite and consulted in the evaluation and care of this patient. The physician did have a face to face encounter with the patient. This chart was documented by the indicated scribe, (Yelena Fish Scribe) and accurately reflects the services I performed and decisions made by me, Mana Jain MD, as attested by the provider's signature.
[2019-06-22] MEDS ORDERED: ROCEPHIN 1 GM in NS 50 ML IV SCH (19:00)
[2019-06-22] MEDS ORDERED: LOVENOX SUBQ SCH (19:00)
[2019-06-22] MEDS: ROCEPHIN 1 GM in NS 50 ML IV SCH (19:19)
[2019-06-22] MEDS ORDERED: APRESOLINE IV PRN (22:00)
[2019-06-22] MEDS: PERCOCET-10 PO SCH (22:51)
[2019-06-23] MEDS: PERCOCET-10 PO SCH ×5 (05:45→22:10)
[2019-06-23] MEDS ORDERED: SONATA PO PRN (05:52)
[2019-06-23] MEDS: SYNTHROID PO SCH (06:20)
[2019-06-23] MEDS ORDERED: AMBIEN PO PRN (07:45)
[2019-06-23] MEDS: JANUVIA PO SCH (08:05)
[2019-06-23] MEDS: FLEXERIL PO SCH ×3 (08:06→22:12)
[2019-06-23] MEDS: ABILIFY PO SCH (08:06)
[2019-06-23] MEDS: COZAAR PO SCH (08:06)
[2019-06-23] MEDS: NEURONTIN PO SCH ×3 (08:06→22:11)
[2019-06-23] MEDS ORDERED: SYNTHROID PO SCH (09:00)
[2019-06-23] MEDS ORDERED: ROCEPHIN IV SCH ×2 (09:00)
--- NOTE | 2019-06-23 09:37 | EKG Report ---
Test Performed on : 06/22/2019 4:09:30 PM Test Reason : sob Blood Pressure : / mmHG Vent. Rate : 108 BPM Atrial Rate : 108 BPM P-R Int : 130 ms QRS Dur : 078 ms QT Int : 330 ms P-R-T Axes : 070 076 065 degrees QTc Int : 442 ms Sinus tachycardia. Possible Left atrial enlargement Borderline ECG When compared with ECG of 05-APR-2017 06:17, No significant change was found Unconfirmed Result
[2019-06-23] MEDS: LEXAPRO PO SCH (10:50)
[2019-06-23] MEDS: ACTOS PO SCH (10:50)
[2019-06-23] MEDS: PATIENT'S OWN MED TOP SCH (10:55)
[2019-06-23] MEDS: PHENERGAN PO PRN ×2 (11:21→16:32)
--- NOTE | 2019-06-23 15:03 | HISTORY AND PHYSICAL ---
CHIEF COMPLAINT: Back pain. HISTORY OF PRESENT ILLNESS: The patient is a 49-year-old female who presented to the Emergency Department noting that she has been having back pain off and on for a week or two. She had been seen by the chiropractor thinking that it was her chronic back pain, however, that did not improve. She was seen by a walk-in clinic who felt as though she had a UTI and she was placed on Macrobid. Her symptoms continued to worsen and therefore she came to the E.R. She denies any real nausea or vomiting. She denies any fevers. She has been taking Macrobid since Tuesday's E.R. visit. She continues to have some nausea. She states that she had vomiting last night. She noted that the dysuria has worsened. ALLERGIES: Bactrim causing abdominal pain. Zofran causing a headache. MEDICATIONS: Humulin R 10 units b.i.d., Pravachol, Adderall, Percocet 10 mg 4 times daily although she states that she takes 2 in the morning and then takes it 3 other times during the day, Synthroid 75 mg, Losartan 50 mg, Abilify 5 mg, Actos 30 mg, Lexapro 10 mg, and currently is on Macrobid as noted above. PAST MEDICAL HISTORY: Chronic pain for which she goes to the pain clinic, diabetes, hypertension, chronic depression, and bipolar. REVIEW OF SYSTEMS: As noted above. Denies any fevers, cough, or chills although she does state that overall she feels bad. She has had nausea and vomiting but denies any hematemesis, hematochezia, melena, or hematuria. She does have dysuria. Denies chest pain or palpitations. Denies diarrhea, constipation, melena, or hematochezia. FAMILY HISTORY: Noncontributory. SOCIAL HISTORY: The patient lives at home. She does smoke still greater than a pack a day despite multiple discussions in the past regarding the importance of stopping. I again discussed with her the importance of stopping. Denies alcohol. SURGICAL HISTORY: She has had a cholecystectomy, hysterectomy, BTL, and orthopedic surgery. PHYSICAL EXAMINATION: VITAL SIGNS: Reviewed. Temp 97, pulse 121, respiratory rate 20, and BP 158/101 in the E.R. Currently 150/96 with a heart rate in the 80s. . GENERAL: The patient is awake and alert. She is in no respiratory distress but she is somewhat ill-appearing, more so due to the nausea and pain. HEENT: Normocephalic. NECK: Supple. CARDIOVASCULAR: Currently regular rate. No murmurs. RESPIRATORY: Chest is clear and nonlabored. ABDOMEN: Soft, nondistended, and nontender. She does have some mild flank pain and tenderness. EXTREMITIES: Moves all extremities. No edema. NEUROLOGICAL: No focal neurological changes. SKIN: Warm and dry. No rash. ASSESSMENT: 1. Supraventricular tachycardia, improved. 2. Volume depletion, improved which likely has improved her supraventricular tachycardia. 3. Hypertension. 4. Pyelonephritis, failed outpatient management. 5. Hypertension, poor control. Hopefully the pain more the cause of her blood pressure being elevated. The patient notes that her blood pressures typically are better at home. 6. Chronic pain. Again, I discussed with the patient the perils of smoking with opiates. Discussed the importance of attempting to wean opiates. Discussed the importance of not taking 2 Percocet at a time. 7. Anxiety and depression. 8. Diabetes. PLAN: We are going to admit the patient to the hospital, we will continue her home medications, place her on Rocephin, IV fluids, and Phenergan, and we will follow. cc: Sandro Manley MD
[2019-06-23] MEDS ORDERED: PRAVACHOL PO SCH (21:00)
[2019-06-23] MEDS: ROCEPHIN 1 GM in NS 50 ML IV SCH (22:12)
[2019-06-24 06:00] VITALS: BP 134/83
[2019-06-24] MEDS: SYNTHROID PO SCH (06:30)
[2019-06-24] MEDS: ACTOS PO SCH (08:04)
[2019-06-24] MEDS: FLEXERIL PO SCH (08:04)
[2019-06-24] MEDS: LEXAPRO PO SCH (08:05)
[2019-06-24] MEDS: PERCOCET-10 PO SCH ×2 (08:05→12:11)
[2019-06-24] MEDS: JANUVIA PO SCH (08:05)
[2019-06-24] MEDS: NEURONTIN PO SCH (08:05)
[2019-06-24] MEDS: ABILIFY PO SCH (08:05)
[2019-06-24] MEDS: COZAAR PO SCH (08:05)
[2019-06-24] MEDS: PATIENT'S OWN MED TOP SCH (12:11)
--- NOTE | 2019-07-04 23:18 | DISCHARGE SUMMARY ---
ADMISSION DATE: 06/22/2019 DISCHARGE DATE: 06/24/2019 DISCHARGE DIAGNOSES: 1. Supraventricular tachycardia, improved. 2. Volume depletion. 3. Hypertension. 4. Pyelonephritis. 5. Chronic pain. CONSULTATIONS: None. PROCEDURE: None. BRIEF HOSPITAL COURSE: The patient was admitted to the hospital. Diagnosed with pyelonephritis and tachycardia. She was placed on IV fluids, Phenergan for her nausea and Rocephin. Thankfully, she continued to improve. On discharge she is awake, alert. She is in no distress. Overall, she is feeling back to her baseline. DISPOSITION: Patient will be discharged home on antibiotics. We do not have a final culture. She is instructed to call her primary care office to have them follow up on her urine culture. However, if symptoms worsen or return she will need to come back to the ER. I certainly would prefer her to stay in the hospital another day, but she is adamant about going home. TIME: Greater than 30 minutes was spent in total care. cc: Sandro Manley MD
== END 2019-06-24 14:30 | disposition home or self-care (01) ==
LOC: P.ED 13:59 → INTOOBSV 20:29 → P.MEDSURG 20:29
PROVIDERS: ADMIT Family Medicine; ATTEND Family Medicine